=== PATIENT | female | born 1985 | race Caucasian/White ===

== ENCOUNTER 2021-10-20 16:19 | Inpatient (IN) ==
[2021-10-20] MEDS ORDERED: Naloxone 0.4 MG/ML INJ IVP PRN (16:24)
[2021-10-20] MEDS ORDERED: Metoclopramide 10 MG/2 ML VIAL IVP PRN (16:24)
[2021-10-20] MEDS ORDERED: Famotidine 20 MG/2 ML VIAL IVP PRN (16:24)
[2021-10-20] MEDS ORDERED: miSOPROStoL 25 MCG TABLET PO PRN (16:29)
[2021-10-20] MEDS ORDERED: Oxytocin 20 units/ LR 1000 mL 20 UNIT/1,000 ML BAG IVC SCH (16:30)
[2021-10-20] MEDS ORDERED: EPHEDrine 50 MG/ML VIAL IVP PRN (16:56)
[2021-10-20] MEDS ORDERED: Epidural Premix (fent/bupiv) 110 ML EP SCH (17:00)
[2021-10-20 17:50] LABS: Influenza A PCR Negative (Negative); Influenza B PCR Negative (Negative); Resp. Syncytial Virus PCR Negative (Negative)
[2021-10-20 17:52] LABS: SARS-CoV-2 by PCR (In House) Negative (Negative)
[2021-10-20] MEDS ORDERED: Penicillin G Potassium 5,000,000 UNIT in 0.9 % Sodium Chloride Mini Bag 100 ML IVPB ONE (17:59)
[2021-10-20] MEDS ORDERED: Lidocaine -MPF 2% 5 ML VIAL ONE (17:59)
[2021-10-20 18:06] LABS: Bilirubin,Urine Negative (Negative); Blood,Urine Negative (Negative); Clarity,Urine Clear (Clear); Color,Urine Light-Yellow (Yellow); Glucose,Urine (UA) Normal (Normal); Ketones,Urine Negative (Negative); Leukocyte Esterase,Urine Negative (Negative); Nitrite,Urine Negative (Negative); Protein,Urine Negative (Neg-Trace); Urobilinogen,Urine Normal (Normal)
[2021-10-20 18:16] LABS: Amphetamine Screen,Urine Negative ng/mL (Cutoff=1000); Barbiturate Screen,Urine Negative ng/mL (Cutoff=200); Benzodiazepines Screen,Urine Negative ng/mL (Cutoff=200); Cannabinoid Screen,Urine Negative ng/mL (Cutoff = 50); Cocaine Screen,Urine Negative ng/mL (Cutoff= 300); Creatinine,Urine 56 mg/dL; Opiate Screen,Urine Negative ng/mL (Cutoff=300); Phencyclidine Screen,Urine Negative ng/mL (Cutoff=25); Protein/Creatinine Ratio,Urine 0.18 mg/mg (0.00-0.20)
[2021-10-20 18:29] LABS: Alanine Aminotransferase 8 Units/L (7-52); Aspartate Amino Transferase 10 Units/L (13-39); BUN/Creatinine Ratio 14 (6-26); Blood Urea Nitrogen 7 mg/dL (6-20); Lactate Dehydrogenase 125 Units/L (140-271); Uric Acid 4.7 mg/dL (2.3-7.6); eGFR For African Americans > 60 (> 60); eGFR For Non-African Americans > 60 (> 60)
[2021-10-20] MEDS ORDERED: Ondansetron 4 MG/2 ML VIAL ONE (18:29)
[2021-10-20] MEDS: Ringers Solution, Lactated 1,000 ML IVC SCH ×2 (18:56→20:39)
[2021-10-20 19:15] LABS: Basophils % 0.2 %; Eosinophils % 0.4 %; Hematocrit 40.1 % (35.3-44.9); Hemoglobin 13.2 g/dL (11.5-15.4); Immature Granulocytes % 0.4 % (0-4); Immature Platelets 14.2 % (1.1-6.1); Lymphocytes # 1.4 K/mcL (0.6-4.6); Lymphocytes % 16.5 %; Mean Corpuscular HGB Conc 32.9 g/dL (31.6-35.5); Mean Corpuscular Hemoglobin 31.9 pg (28.0-33.3); Mean Corpuscular Volume 96.9 fL (83.0-100.0); Monocytes # 0.7 K/mcL (0.0-1.3); Monocytes % 7.7 %; Neutrophils # 6.3 K/mcL (1.6-8.9); Platelet Count 205 K/mcL (140-400); Red Blood Count 4.14 M/mcL (3.82-4.97); Red Cell Distribution Width 13.9 % (11.5-14.5); Segmented Neutrophils % 74.8 %; White Blood Count 8.4 K/mcL (4.3-11.1)
[2021-10-20] MEDS ORDERED: Famotidine 20 MG/2 ML VIAL IVP ONE (21:27)
[2021-10-20] MEDS ORDERED: Penicillin G Potassium 2,500,000 UNIT/105 ML MLS IVPB SCH (22:00)
[2021-10-21] MEDS ORDERED: Lanolin 7 G OINT...G. TP PRN (01:40)
[2021-10-21] MEDS ORDERED: Ondansetron ODT 4 MG TAB.RAPDIS SL PRN (01:40)
[2021-10-21] MEDS ORDERED: Measles/Mumps/Rubella Vacc 0.5 ML VIAL SQ PRN (01:40)
[2021-10-21] MEDS ORDERED: Oxytocin 20 units/ LR 1000 mL 20 UNIT/1,000 ML BAG IVC SCH (01:40)
[2021-10-21] MEDS ORDERED: Rho Immune Globulin 1,500 UNIT SYRINGE IM PRN (01:40)
[2021-10-21] MEDS ORDERED: Benzocaine/Menthol 56 GM AEROSOL SPRAY TP PRN (01:40)
[2021-10-21] MEDS: Prenatal Vit/FA 1 EACH TABLET PO SCH (09:11)
[2021-10-21] MEDS: Acetaminophen 325 MG TABLET PO SCH ×2 (09:11→20:45)
[2021-10-21] MEDS: Ibuprofen 600 MG TABLET PO SCH ×2 (15:01→20:45)
[2021-10-22] MEDS: Acetaminophen 325 MG TABLET PO SCH ×3 (02:07→19:42)
[2021-10-22] MEDS: Ibuprofen 600 MG TABLET PO SCH ×3 (02:07→16:54)
[2021-10-22] MEDS: Prenatal Vit/FA 1 EACH TABLET PO SCH (07:52)
[2021-10-22 19:34] VITALS: O2SAT 98
[2021-10-23] MEDS: Acetaminophen 325 MG TABLET PO SCH ×2 (02:09→07:58)
[2021-10-23 07:29] VITALS: BP 104/61; PULSE 57; TEMP 97.6
[2021-10-23] MEDS: Ibuprofen 600 MG TABLET PO SCH (07:58)
[2021-10-23] MEDS: Prenatal Vit/FA 1 EACH TABLET PO SCH (07:58)
== END 2021-10-23 09:26 | disposition home or self-care (01) | DRG 560 ==
LOC: 1NENULAB 16:19 → 1NENUOBS 10-21 01:43
PROVIDERS: ADMIT Registered Nurse; ATTEND Registered Nurse